=== PATIENT | male | born 1975 | race Asian ===

== ENCOUNTER 2018-12-26 15:38 | Inpatient (IN) | payer MEDICAID, OTHER ==
[~2018-12-26] VITALS: Ht 167.6 cm; Wt 76.2 kg
[2018-12-26 16:26] LABS: AMPHET/METH SCREEN,URINE NEGATIVE (NEGATIVE); BARBITURATE SCREEN, URINE NEGATIVE (NEGATIVE); BENZODIAZEPINES SCREEN,URINE NEGATIVE (NEGATIVE); CANNABINOID SCREEN,URINE NEGATIVE (NEGATIVE); COCAINE SCREEN,URINE NEGATIVE (NEGATIVE); METHADONE SCREEN, URINE NEGATIVE (NEGATIVE); OPIATE SCREEN,URINE NEGATIVE (NEGATIVE)
[2018-12-26 16:27] LABS: PHENCYCLIDINE SCREEN,URINE NEGATIVE (NEGATIVE)
[2018-12-26 16:40] LABS: BASOPHILS % (AUTO) 0.9 % (0.0-2.0); EOSINOPHILS % (AUTO) 2.1 % (1.0-6.0); HEMATOCRIT 43.2 % (41-53); HEMOGLOBIN 14.6 g/dL (13.5-17.5); LYMPHOCYTES # (AUTO) 2.2 K/uL (1.0-4.8); LYMPHOCYTES % (AUTO) 22.3 % (22.0-44.0); MEAN CORPUSCULAR HGB CONC 33.9 G/dL (31.0-37.0); MEAN CORPUSCULAR VOLUME 92 fL (80-100); MONOCYTES # (AUTO) 0.5 K/uL (0.1-1.0); NEUTROPHILS # (AUTO) 6.8 K/uL (1.8-7.7); NEUTROPHILS % (AUTO) 69.7 % (40.0-70.0); PLATELET COUNT (AUTO) 150 K/uL (150-450); RED BLOOD CELL COUNT(AUTO) 4.72 MIL/uL (4.50-5.90); RED CELL DISTRIBUTION WIDTH 14.3 % (11.5-14.5)
[2018-12-26 16:49] LABS: ANION GAP 10 mmol/L (8-16); CALCIUM, TOTAL 8.1 mg/dL (8.8-10.5); CARBON DIOXIDE 26 mmol/L (22-29); CHLORIDE 107 mmol/L (98-107); CREATININE 0.84 mg/dL (0.60-1.30); GLOMERULAR FILTR. RATE CALC > 60 mL/min (>60); GLUCOSE,RANDOM 100 mg/dL (70-110); POTASSIUM 3.2 mmol/L (3.5-5.1); SODIUM SERUM 143 mmol/L (136-145); UREA NITROGEN, BLOOD 9 mg/dL (7-18)
[2018-12-26 16:56] LABS: ALANINE AMINOTRANSFERASE 22 U/L (12-78); ALBUMIN 3.3 g/dL (3.4-5.0); ALKALINE PHOSPHATASE 74 U/L (46-116); ASPARTATE AMINOTRANSFERASE 28 U/L (15-37); BILIRUBIN,TOTAL 0.3 mg/dL (0.1-1.0); TOTAL PROTEIN, SERUM 6.7 g/dL (6.4-8.2)
[2018-12-26] MEDS ORDERED: GLUCAGON,HUMAN RECOMBINANT 1 MG VIAL IM PRN (17:00)
[2018-12-26] MEDS ORDERED: POTASSIUM CHLORIDE 20 MEQ ER TABLET PO ONE (17:00)
[2018-12-26] MEDS ORDERED: INSULIN LISPRO 100 UNITS/ML SQ PRN (17:00)
[2018-12-26 17:23] LABS: GLUCOSE,POINT OF CARE 98 MG/DL (70-110)
[2018-12-26 17:51] LABS: APPEARANCE,URINE CLEAR (CLEAR); BILIRUBIN,URINE NEGATIVE (NEGATIVE); GLUCOSE, URINE (UA) NEGATIVE (NEGATIVE); KETONES,URINE NEGATIVE (NEGATIVE); LEUKOCYTE ESTERASE ,URINE NEGATIVE (NEGATIVE); NITRATE,URINE NEGATIVE (NEGATIVE); OCCULT BLOOD,URINE NEGATIVE (NEGATIVE); PROTEIN,URINE NEGATIVE (NEGATIVE); UROBILINOGEN,URINE 0.2 mg/dL (<=1.0)
[2018-12-26 23:45] VITALS: BP 121/73
[2018-12-27] VITALS (10 sets, daily range): BP systolic 112–137; BP diastolic 63–97
[2018-12-27] MEDS: LORazepam 2 MG TABLET PO PRN ×2 (00:52→17:00)
[2018-12-27] MEDS: ZOLPIDEM TARTRATE 10 MG TABLET PO PRN (00:52)
[2018-12-27 09:12] LABS: ANION GAP 4 mmol/L (8-16); CALCIUM, TOTAL 8.5 mg/dL (8.8-10.5); CARBON DIOXIDE 30 mmol/L (22-29); CHLORIDE 108 mmol/L (98-107); CHOL/HDL RATIO 3.6 (4.2-7.3); CHOLESTEROL 129 mg/dL (131-200); FREE T4 (FREE THYROXINE) 0.72 ng/dL (0.76-1.46); GLOMERULAR FILTR. RATE CALC > 60 mL/min (>60); GLUCOSE,RANDOM 80 mg/dL (70-110); HDL CHOLESTEROL 36 mg/dL (40-60); LDL CHOL (CALC.) 80 mg/dL (0-130); SODIUM SERUM 142 mmol/L (136-145); THYROID STIMULATING HORMONE 1.44 uIU/mL (0.36-3.74); TRIGLYCERIDES 63 mg/dL (15-150); UREA NITROGEN, BLOOD 11 mg/dL (7-18)
[2018-12-27] MEDS: HALOPERIDOL 5 MG TABLET PO PRN (17:00)
[2018-12-27] MEDS: MIRTAZAPINE 15 MG TABLET PO SCH (20:35)
[2018-12-28 00:29] VITALS: BP 138/90
[2018-12-28 03:00] VITALS: BP 121/82
[2018-12-28 08:00] VITALS: BP 137/85
[2018-12-28] MEDS: RisperiDONE 2 MG TABLET PO SCH ×2 (08:05→16:17)
[2018-12-28] MEDS: NICOTINE 21 MG/24 HOUR PATCH TD SCH (08:06)
[2018-12-28 08:43] VITALS: BP 137/85
[2018-12-28 16:00] VITALS: BP 105/69
[2018-12-28 16:01] VITALS: BP 105/69
[2018-12-28] MEDS: LORazepam 2 MG TABLET PO PRN (16:17)
[2018-12-28] MEDS: MIRTAZAPINE 15 MG TABLET PO SCH (20:34)
[2018-12-28] MEDS: ZOLPIDEM TARTRATE 10 MG TABLET PO PRN (20:34)
[2018-12-29 01:04] VITALS: BP 118/85
[2018-12-29 01:06] VITALS: BP 118/85
[2018-12-29] MEDS: LORazepam 2 MG TABLET PO PRN ×4 (02:03→16:50)
[2018-12-29 08:20] LABS: ANION GAP 7 mmol/L (8-16); CALCIUM, TOTAL 8.6 mg/dL (8.8-10.5); CARBON DIOXIDE 29 mmol/L (22-29); CHLORIDE 102 mmol/L (98-107); CREATININE 0.86 mg/dL (0.60-1.30); GLOMERULAR FILTR. RATE CALC > 60 mL/min (>60); GLUCOSE,RANDOM 81 mg/dL (70-110); POTASSIUM 4.1 mmol/L (3.5-5.1); SODIUM SERUM 138 mmol/L (136-145); UREA NITROGEN, BLOOD 10 mg/dL (7-18)
[2018-12-29 08:45] VITALS: BP 129/77
[2018-12-29 08:46] VITALS: BP 129/77
[2018-12-29] MEDS: RisperiDONE 2 MG TABLET PO SCH ×2 (08:50→16:50)
[2018-12-29] MEDS: HALOPERIDOL 5 MG TABLET PO PRN ×3 (08:50→16:50)
[2018-12-29] MEDS: NICOTINE 21 MG/24 HOUR PATCH TD SCH (08:52)
[2018-12-29 16:32] VITALS: BP 136/88
[2018-12-29] MEDS: MIRTAZAPINE 15 MG TABLET PO SCH (20:17)
[2018-12-30 01:11] VITALS: BP 124/75
[2018-12-30 01:14] VITALS: BP 124/75
[2018-12-30 08:28] VITALS: BP 104/60
[2018-12-30 08:30] VITALS: BP 104/60
[2018-12-30] MEDS: LORazepam 2 MG TABLET PO PRN ×2 (08:42→16:49)
[2018-12-30] MEDS: RisperiDONE 2 MG TABLET PO SCH ×2 (08:42→16:49)
[2018-12-30] MEDS: NICOTINE 21 MG/24 HOUR PATCH TD SCH (08:43)
[2018-12-30 16:49] VITALS: BP 106/72
[2018-12-30] MEDS: MIRTAZAPINE 15 MG TABLET PO SCH (20:30)
[2018-12-31 02:00] VITALS: BP 116/69
[2018-12-31 02:09] VITALS: BP 116/69
[2018-12-31] MEDS: ZOLPIDEM TARTRATE 10 MG TABLET PO PRN (02:11)
[2018-12-31 08:12] VITALS: BP 122/64
[2018-12-31] MEDS: LORazepam 2 MG TABLET PO PRN ×2 (08:36→16:55)
[2018-12-31] MEDS: RisperiDONE 2 MG TABLET PO SCH ×2 (08:36→16:55)
[2018-12-31] MEDS: NICOTINE 21 MG/24 HOUR PATCH TD SCH (08:37)
[2018-12-31 09:21] VITALS: BP 122/64
[2018-12-31 16:00] VITALS: BP 100/73
[2018-12-31] MEDS: MIRTAZAPINE 15 MG TABLET PO SCH (20:27)
[2019-01-01 00:06] VITALS: BP 130/84
[2019-01-01 02:06] VITALS: BP 130/84
[2019-01-01 08:13] VITALS: BP 105/73
[2019-01-01] MEDS: LORazepam 2 MG TABLET PO PRN ×2 (08:27→16:53)
[2019-01-01] MEDS: NICOTINE 21 MG/24 HOUR PATCH TD SCH (08:27)
[2019-01-01] MEDS: RisperiDONE 2 MG TABLET PO SCH ×2 (08:27→16:53)
[2019-01-01 16:00] VITALS: BP 126/78
[2019-01-01] MEDS: HALOPERIDOL 5 MG TABLET PO PRN (18:15)
[2019-01-01] MEDS: MIRTAZAPINE 15 MG TABLET PO SCH (20:26)
[2019-01-01] MEDS: ZOLPIDEM TARTRATE 10 MG TABLET PO PRN (20:26)
[2019-01-02 06:53] VITALS: BP 113/74
[2019-01-02 08:14] VITALS: BP 114/70
[2019-01-02] MEDS: LORazepam 2 MG TABLET PO PRN ×2 (08:32→16:56)
[2019-01-02] MEDS: RisperiDONE 2 MG TABLET PO SCH ×2 (08:32→16:56)
[2019-01-02] MEDS: NICOTINE 21 MG/24 HOUR PATCH TD SCH (09:00)
[2019-01-02] MEDS ORDERED: RISP2 PO (09:05)
[2019-01-02] MEDS ORDERED: MIRT15 PO (09:07)
[2019-01-02 16:00] VITALS: BP 106/67
[2019-01-02] MEDS: HALOPERIDOL 5 MG TABLET PO PRN (16:56)
[2019-01-02] MEDS: MIRTAZAPINE 15 MG TABLET PO SCH (20:19)
[2019-01-03 06:17] VITALS: BP 110/70
[2019-01-03 08:10] VITALS: BP 112/71
[2019-01-03] MEDS: HALOPERIDOL 5 MG TABLET PO PRN (08:48)
[2019-01-03] MEDS: NICOTINE 21 MG/24 HOUR PATCH TD SCH (08:48)
[2019-01-03] MEDS: RisperiDONE 2 MG TABLET PO SCH ×2 (08:48→16:20)
[2019-01-03] MEDS: LORazepam 2 MG TABLET PO PRN ×2 (08:48→16:20)
[2019-01-03 16:00] VITALS: BP 109/68
[2019-01-03] MEDS: MIRTAZAPINE 15 MG TABLET PO SCH (20:33)
[2019-01-04 04:12] VITALS: BP 116/75
[2019-01-04] MEDS: NICOTINE 21 MG/24 HOUR PATCH TD SCH (08:28)
[2019-01-04] MEDS: LORazepam 2 MG TABLET PO PRN (08:28)
[2019-01-04] MEDS: RisperiDONE 2 MG TABLET PO SCH (08:28)
[2019-01-04] MEDS: HALOPERIDOL 5 MG TABLET PO PRN (08:28)
[2019-01-04 09:01] VITALS: BP 111/66
== END 2019-01-04 13:44 | disposition home or self-care (01) | DRG 750 ==
LOC: EMS 15:38 → B3A 17:37
PROVIDERS: ADMIT Psychiatry & Neurology Psychiatry; ATTEND Psychiatry & Neurology Psychiatry
DX: F20.0 Paranoid schizophrenia (principal); R45.851 Suicidal ideations; E11.9 Type 2 diabetes mellitus without complications; Z28.21 Immunization not carried out because of patient refusal; E87.6 Hypokalemia; F10.10 Alcohol abuse, uncomplicated; F17.200 Nicotine dependence, unspecified, uncomplicated; Y90.8 Blood alcohol level of 240 mg/100 ml or more
CPT/HCPCS: 80074; 83036; 84436; 84439; 84443; G0480; J1610